=== PATIENT | male | born 1950 | race Caucasian/White ===

== ENCOUNTER 2017-10-30 11:07 | Outpatient (CLI) | payer OTHER, MEDICARE ==
--- NOTE | 2017-10-30 13:57 | CT ---
SINUS CT WITHOUT CONTRAST: HISTORY: Chronic maxillary sinusitis. Sinus drainage x6 months. COMPARISON: None. TECHNIQUE: A sinus CT is performed without contrast. Reformatted images are submitted for interpretation. FINDINGS: The visualized brain parenchyma is unremarkable. Bilateral ocular lenses are appropriately located. Both globes are intact. Retrobulbar fat is prese rved. Extensive dental amalgam artifact limits evaluation of the oral cavity. There is adequate aeration of the mastoid air cells. There is adequate aeration of the bilateral frontal sinuses. There is minimal mucosal disease in the dependent portion of the left frontal sinus. Adequate ethmoid air cell aeration. Adequate aeration of the sphenoid sinuses. Bilateral maxillary sinuses are adequately aerated. Bilateral osteomeatal complexes are patent. The nasal septum is intact and midline. Katlyn bullosa of the left superior turbinate is noted. With regard to the margins of the sinuses, no erosive or destructive changes. No hypertrophy. IMPRESSION: Minimal sinus disease involving the left frontal sinus. POS: [facility]
== END 2017-10-30 11:08 | disposition home or self-care (01) ==
LOC: CT 11:07
PROVIDERS: ATTEND Thoracic Surgery (Cardiothoracic Vascular Surgery)
DX: J32.0 Chronic maxillary sinusitis (principal); J34.89 Other specified disorders of nose and nasal sinuses

== ENCOUNTER 2018-10-15 18:05 | Emergency (ER) | payer OTHER, MEDICARE | END 2018-10-15 18:53 | disposition left against medical advice (07) | LOC: ERS 18:05 | DX: Z53.21 Procedure and treatment not carried out due to patient leaving prior to being seen by health care provider (principal) ==